=== PATIENT | male | born 1960 | race Caucasian/White ===

== ENCOUNTER → 2024-06-23 06:17 | Day surgery (SDC) | payer MEDICARE, SELFPAY | LOC: GI 06:17 | PROVIDERS: ATTENDING PHYSICIAN Internal Medicine Gastroenterology | DX: K52.9 Noninfective gastroenteritis and colitis, unspecified (principal); D12.2 Benign neoplasm of ascending colon; D12.5 Benign neoplasm of sigmoid colon; K64.8 Other hemorrhoids | CPT/HCPCS: 45380; 88305 ==

== ENCOUNTER → 2025-02-15 10:54 | Outpatient (REF) | payer MEDICARE, SELFPAY ==
[2025-02-15 12:51] LABS: Blood Urea Nitrogen 13 mg/dl (9-20)
== END ==
LOC: HWLAB 10:54
PROVIDERS: ATTENDING PHYSICIAN Internal Medicine Gastroenterology; FAMILY PHYSICIAN Internal Medicine
DX: K55.9 Vascular disorder of intestine, unspecified (principal); N20.0 Calculus of kidney
CPT/HCPCS: 36415; 82565; 84520

== ENCOUNTER → 2025-02-16 16:52 | Outpatient (REF) | payer MEDICARE, SELFPAY | LOC: RAD 16:52 | PROVIDERS: ATTENDING PHYSICIAN Internal Medicine | DX: R91.1 Solitary pulmonary nodule (principal) | CPT/HCPCS: 71250 ==

== ENCOUNTER → 2025-02-21 07:13 | Outpatient (REF) | payer MEDICARE, SELFPAY | LOC: RAD 07:13 | PROVIDERS: ATTENDING PHYSICIAN Internal Medicine Gastroenterology; FAMILY PHYSICIAN Internal Medicine | DX: K55.9 Vascular disorder of intestine, unspecified (principal) | CPT/HCPCS: 74174; Q9967 ==

== ENCOUNTER → 2025-05-09 09:59 | Outpatient (REF) | payer MEDICARE, SELFPAY | LOC: RAD 09:59 | PROVIDERS: ATTENDING PHYSICIAN Internal Medicine | DX: S90.02XA Contusion of left ankle, initial encounter (principal); R60.0 Localized edema | CPT/HCPCS: 93971 ==